=== PATIENT | female | born 1995 | race American Indian/Alaskan Native ===

== ENCOUNTER 2017-11-04 20:43 | Emergency (ER) | payer MEDICAID ==
[2017-11-04 21:35] LABS: Basophils # (Auto) 0.1 K/mm3 (0.0-0.1); Basophils % (Auto) 0.9 % (0.0-1.8); Eosinophils # (Auto) 0.1 K/mm3 (0.0-0.4); Eosinophils % (Auto) 1.8 % (0.0-4.3); Hematocrit 41.3 % (30.3-42.9); Hemoglobin 13.8 gm/dl (10.1-14.3); Lymphocytes # (Auto) 2.6 K/mm3 (1.2-5.4); Lymphocytes % (Auto) 37.7 % (13.4-35.0); Mean Corpuscular HGB Conc 33 % (30-34); Mean Corpuscular Hemoglobin 30 pg (28-32); Mean Corpuscular Volume 89 fl (79-97); Monocytes # (Auto) 0.9 K/mm3 (0.0-0.8); Monocytes % (Auto) 12.4 % (0.0-7.3); Platelet Count 297 K/mm3 (140-440); Red Blood Count 4.66 M/mm3 (3.65-5.03); Red Cell Distribution Width 12.6 % (13.2-15.2)
[2017-11-04 21:50] LABS: Alanine Aminotransferase 10 units/L (7-56); Albumin 4.1 g/dL (3.9-5)
[2017-11-04 21:54] LABS: BUN/Creatinine Ratio 11; Blood Urea Nitrogen 8 mg/dL (7-17); Calcium 9.1 mg/dL (8.4-10.2); Hemolysis Index 19; Lipase 9 units/L (13-60)
[2017-11-04 22:14] LABS: Bacteria,Urine 1+ /HPF (Negative); Bilirubin,Urine NEG (Negative); Blood,Urine NEG (Negative); Color,Urine Yellow (Yellow); Protein,Urine <15 mg/dL mg/dL (Negative); Urobilinogen,Urine < 2.0 mg/dL (<2.0)
[2017-11-04 22:16] LABS: HCG Qualitative,Urine Negative (Negative)
[2017-11-04] MEDS ORDERED: SUBLIMAZE IV ONE (23:28)
[2017-11-04] MEDS ORDERED: PEPCID IV ONE (23:28)
[2017-11-04] MEDS ORDERED: TORADOL IV ONE (23:28)
[2017-11-04] MEDS ORDERED: REGLAN IV ONE (23:29)
[2017-11-04] MEDS ORDERED: NACL 0.9% 500 ML 500 ML IV ONE (23:29)
--- NOTE | 2017-11-04 23:30 | Emergency Department Report ---
ED Abdominal Pain HPI - General Chief Complaint: Abdominal Pain Stated Complaint: ABD PAIN; H/A Time Seen by Provider: 11/04/17 23:21 Source: patient, RN notes reviewed Mode of arrival: Ambulatory Limitations: No Limitations - History of Present Illness Initial Comments: This is a 22-year-old female who is previously unknown to this provider. She does not have a primary care doctor, and endorses a past medical history of chronic migraines and sickle cell trait. Patient presents to the ER with 2 days of epigastric and periumbilical abdominal pain which radiates to the left side. There is a few episodes of nonbloody, nonbilious emesis. She reports this pain has been present for 1 month, but got worse over the past 2 days. She endorses 7-8 episodes of nonbloody, nonbilious emesis. There is no right lower quadrant pain, no vaginal discharge, no irritative, obstructive urinary symptoms. Patient also describes a frontal sinus headache, which is behind the nose, which has been present for 3-4 days, it is not sudden or thunderclap in nature, not maximal in intensity, not the worst headache of her life. There is no neck pain or neck stiffness. MD Complaint: abdominal pain -: Gradual Location: epigastric, L flank Severity: moderate Quality: cramping Consistency: intermittent Improves With: nothing Worsens With: nothing Associated Symptoms: nausea, vomiting, other (also complains of headache). denies: diarrhea, fever, chills, constipation, dysuria, hematemesis, hematochezia, melena, hematuria, anorexia, syncope - Related Data Previous Rx's Medication Instructions Recorded Last Taken Type Acetaminophen [Tylenol Extra 500 mg PO Q6HR PRN #30 tablet 11/05/17 Unknown Rx Strength] Dicyclomine [Bentyl] 10 mg PO QID PRN #20 capsule 11/05/17 Unknown Rx Ibuprofen [Motrin] 400 mg PO Q8H PRN #30 tablet 11/05/17 Unknown Rx Ondansetron [Zofran Odt] 4 mg PO Q8HR PRN #20 tab.rapdis 11/05/17 Unknown Rx Allergies Allergy/AdvReac Type Severity Reaction Status Date / Time No Known Allergies Allergy Unverified 11/04/17 21:24 ED Review of Systems ROS: Stated complaint: ABD PAIN; H/A Other details as noted in HPI Comment: All other systems reviewed and negative Genitourinary: denies: dysuria Neurological: headache Psychiatric: anxiety ED Past Medical Hx - Past Medical History Hx Headaches / Migraines: Yes Additional medical history: murmur//sickle cell trait - Social History Smoking Status: Current Some Day Smoker Substance Use Type: Alcohol - Medications Home Medications: Home Medications Medication Instructions Recorded Confirmed Last Taken Type Acetaminophen [Tylenol Extra 500 mg PO Q6HR PRN #30 tablet 11/05/17 Unknown Rx Strength] Dicyclomine [Bentyl] 10 mg PO QID PRN #20 capsule 11/05/17 Unknown Rx Ibuprofen [Motrin] 400 mg PO Q8H PRN #30 tablet 11/05/17 Unknown Rx Ondansetron [Zofran Odt] 4 mg PO Q8HR PRN #20 tab.rapdis 11/05/17 Unknown Rx ED Physical Exam - General Limitations: No Limitations General appearance: alert, in no apparent distress - Head Head exam: Present: atraumatic, normocephalic - Eye Eye exam: Present: normal appearance, EOMI. Absent: nystagmus - ENT ENT exam: Present: normal exam, normal orophraynx, mucous membranes moist, normal external ear exam - Neck Neck exam: Present: normal inspection, full ROM - Respiratory Respiratory exam: Present: normal lung sounds bilaterally. Absent: respiratory distress - Cardiovascular Cardiovascular Exam: Present: regular rate, normal rhythm, normal heart sounds. Absent: systolic murmur, diastolic murmur, rubs, gallop - GI/Abdominal GI/Abdominal exam: Present: soft, tenderness, normal bowel sounds, other (there is epigastric tenderness. There is suprapubic and umbilical tenderness. There is no right lower quadrant tenderness. There is a negative Bravo sign. There is negative Rovsing sign. There is negative obturator sign). Absent: distended , guarding, rebound, rigid, pulsatile mass - External exam: Present: normal external exam Speculum exam: Present: normal speculum exam Bi-manual exam: Present: normal bi-manual exam, other (escorted by nurse hina davis). Absent: cervical motion tendernes, adnexal tenderness, adnexal mass, uterine enlargement, uterine tenderness - Extremities Exam Extremities exam: Present: normal inspection, full ROM, normal capillary refill. Absent: pedal edema, joint swelling, calf tenderness - Back Exam Back exam: Present: normal inspection, full ROM. Absent: tenderness, CVA tenderness (R), paraspinal tenderness, vertebral tenderness - Neurological Exam Neurological exam: Present: alert, oriented X3, CN II-XII intact, normal gait, other (Extraocular movements intact. Tongue midline. No facial droop. Facial sensation intact to light touch in the V1, V2, V3 distribution bilaterally. 5 and 5 strength in 4 extremities.. Sensation is intact to light touch in 4 extremities.). Absent: motor sensory deficit - Psychiatric Psychiatric exam: Present: anxious - Skin Skin exam: Present: warm, dry, intact, normal color. Absent: rash ED Course Vital Signs 11/04/17 11/05/17 21:21 00:39 Temperature 97.5 F L Pulse Rate 80 Respiratory 18 14 Rate Blood Pressure 132/87 O2 Sat by Pulse 99 Oximetry ED Medical Decision Making - Lab Data Result diagrams: 11/04/17 21:27 11/04/17 21:27 Vital Signs 11/04/17 11/05/17 21:21 00:39 Temperature 97.5 F L Pulse Rate 80 Respiratory 18 14 Rate Blood Pressure 132/87 O2 Sat by Pulse 99 Oximetry Lab Results 11/04/17 11/04/17 11/04/17 Range/Units 21:27 21:27 21:55 WBC 7.0 (4.5-11.0) K/mm3 RBC 4.66 (3.65-5.03) M/mm3 Hgb 13.8 (10.1-14.3) gm/dl Hct 41.3 (30.3-42.9) % MCV 89 (79-97) fl MCH 30 (28-32) pg MCHC 33 (30-34) % RDW 12.6 L (13.2-15.2) % Plt Count 297 (140-440) K/mm3 Lymph % (Auto) 37.7 H (13.4-35.0) % [place] % (Auto) 12.4 H (0.0-7.3) % Eos % (Auto) 1.8 (0.0-4.3) % Baso % (Auto) 0.9 (0.0-1.8) % Lymph # 2.6 (1.2-5.4) K/mm3 [place] # 0.9 H (0.0-0.8) K/mm3 Eos # 0.1 (0.0-0.4) K/mm3 Baso # 0.1 (0.0-0.1) K/mm3 Seg Neutrophils % 47.2 (40.0-70.0) % Seg Neutrophils # 3.3 (1.8-7.7) K/mm3 Sodium 135 L (137-145) mmol/L Potassium 3.7 (3.6-5.0) mmol/L Chloride 95.3 L (98-107) mmol/L Carbon Dioxide 25 (22-30) mmol/L Anion Gap 18 mmol/L BUN 8 (7-17) mg/dL Creatinine 0.7 (0.7-1.2) mg/dL Estimated GFR > 60 ml/min BUN/Creatinine Ratio 11 % Glucose 89 (65-100) mg/dL Calcium 9.1 (8.4-10.2) mg/dL Total Bilirubin 0.70 (0.1-1.2) mg/dL AST 13 (5-40) units/L ALT 10 (7-56) units/L Alkaline Phosphatase 58 (35-129) units/L Total Protein 7.2 (6.3-8.2) g/dL Albumin 4.1 (3.9-5) g/dL Albumin/Globulin Ratio 1.3 % Lipase 9 L (13-60) units/L Urine Color Yellow (Yellow) Urine Turbidity Clear (Clear) Urine pH 5.0 (5.0-7.0) Ur Specific [place] 1.011 (1.003-1.030) Urine Protein <15 mg/dl (Negative) mg/dL Urine Glucose (UA) Neg (Negative) mg/dL Urine Ketones 20 (Negative) mg/dL Urine Blood Neg (Negative) Urine Nitrite Neg (Negative) Urine Bilirubin Neg (Negative) Urine Urobilinogen < 2.0 (<2.0) mg/dL Ur Leukocyte Esterase Mod (Negative) Urine WBC (Auto) 14.0 H (0.0-6.0) /HPF Urine RBC (Auto) 2.0 (0.0-6.0) /HPF U Epithel Cells (Auto) 4.0 (0-13.0) /HPF Urine Bacteria (Auto) 1+ (Negative) /HPF Urine HCG, Qual Negative (Negative) - Radiology Data Radiology results: report reviewed, image reviewed CT scan of the abdomen and pelvis with IV contrast negative for acute disease. The appendix is not identified, there are no secondary signs of appendicitis - Medical Decision Making Differential diagnosis, including but not limited to: Pelvic inflammatory disease, urinary tract infection, renal colic, hernia, GERD, gastritis, anxiety Assessment and plan: 22-year-old female with epigastric, supraumbilical left- sided abdominal pain, no cervical motion tenderness or adnexal tenderness, urinalysis that may be consistent with chlamydia secondary to leukocytes and white blood cells, many trichomoniasis noted on wet prep, with no right lower quadrant pain. Patient has intermittent episodes of crying and laughing in the emergency room. She felt improved after pain medication. Given presence of trichomoniasis and her urinalysis findings, she is covered empirically with Flagyl, ceftriaxone, azithromycin. The patient will be discharged home with nonnarcotic pain medication, nausea medication, instructions to follow up with outpatient gynecology. She is specifically given appropriate instructions in counseling for STDs. Critical care attestation.: If time is entered above; I have spent that time in minutes in the direct care of this critically ill patient, excluding procedure time. ED Disposition Clinical Impression: Abdominal pain, Trichomoniasis Disposition: DC-01 TO HOME OR SELFCARE Is pt being admited?: No Does the pt Need Aspirin: No Condition: Stable Instructions: Pelvic Inflammatory Disease (ED), Trichomoniasis (ED) Additional Instructions: As we discussed, your laboratory studies appeared to be within normal limits. The urinalysis test suggested but did not diagnose chlamydia. The wet prep demonstrated trichomoniasis which is considered a chest sexually-transmitted disease. Given all this, you'll be treated empirically for disease called pelvic inflammatory disease. We typically treat young females with unexplained lower abdominal pain to protect your ability to have children safely in the future. Cultures were sent today, and results will be available next 3-5 days. Please have your primary care doctor call the medical records department to obtain your culture results. Take the antibiotic therapy as directed. Take the nausea medication and pain medication as directed. I recommend outpatient testing for sexually transmitted diseases, including hepatitis, syphilis and HIV. I also recommend that you abstain from sexual activity until you have completed her antibiotic therapy, a physician states that it is safe for you to resume sexual activity, and any partners that you have been sexually active with have been tested/treated/evaluated for sexual transmitted diseases. Does not consume alcohol for the next week. Please follow-up with physician within 3-5 days. I recommend that you return to the ER right away with worsening pain, migration of pain, intractable nausea/vomiting, inability tolerate liquid feeds. Referrals: [facility] [Provider Group] - 3-5 Days [facility] [Provider Group] - 3-5 Days [facility] [Provider Group] - 3-5 Days
--- NOTE | 2017-11-05 00:37 | Cat Scan Report ---
FINAL REPORT EXAM: CT ABDOMEN PELVIS W CON HISTORY: abd pain TECHNIQUE: Routine axial imaging was obtained of the abdomen and pelvis following the intravenous injection of 100 cc of Omnipaque 300. Delayed axial imaging was obtained through the kidneys ureters and bladder. Sagittal coronal reconstructions were reviewed also. FINDINGS: The lung bases are clear. Pleural fluid is not seen. The liver, gallbladder, pancreas, spleen, and adrenal glands appear normal. The kidneys enhance normally. There is no evidence of hydronephrosis. The vascular structures enhance normally. The bowel loops are normal in caliber and course. The appendix is not seen. There is no evidence of free fluid or adenopathy. In the pelvis the uterus and bladder appear normal. The skeletal structures appear well maintained IMPRESSION: No acute process in the abdomen and pelvis. Appendix not identified.
[2017-11-05] MEDS ORDERED: ZITHROMAX PO ONE (00:51)
[2017-11-05] MEDS ORDERED: FLAGYL PO STA (00:51)
[2017-11-05] MEDS ORDERED: ROCEPHIN 250 MG in NACL 0.9% 50 ML IV STA (00:51)
[2017-11-05] MEDS ORDERED: cefTRIAXone 0.25 GM in NACL 0.9% 20 ML IV SCH (01:15)
[2017-11-05 01:52] VITALS: BP 120/96
== END 2017-11-05 02:33 | disposition home or self-care (01) ==
LOC: ED 20:43
DX: A59.8 Trichomoniasis of other sites (principal); F17.200 Nicotine dependence, unspecified, uncomplicated
CPT/HCPCS: 36415; 74177; 80053; 81001; 81025; 83690; 85025; 87210; 96374; 96375; 99285; J0696; J1885; J2765; J7040; Q9967